=== PATIENT | male | born 1990 | race Caucasian/White ===

== ENCOUNTER 2019-09-06 19:57 | Emergency (ER) | payer BC ==
[2019-09-06] MEDS ORDERED: NORCO 5/325 MG PO ONE (20:21)
[2019-09-06] MEDS ORDERED: SUBLIMAZE 100 MCG/2 ML INTRANASAL ONE (20:21)
[2019-09-06] MEDS ORDERED: SUBLIMAZE 100 MCG/2 ML ONE (20:23)
[2019-09-06] MEDS ORDERED: NORCO 5/325 MG ONE (20:23)
--- NOTE | 2019-09-06 20:23 | ERPHSYRPT ---
- History of Present Illness Time Seen by Provider: 09/06/19 20:20 Source: patient Physician History: The patient is an ambidextrous 28-year-old male who presents with a chief complaint of left shoulder pain. Onset was an estimated 30 minutes to 1 hour prior to arrival to the emergency department. He reportedly was wrestling with his 's brother when he fell on his left shoulder and heard a "pop" that was immediately followed by pain in shoulder. The pain is described as a sharp pain that is constant and severe and nonradiating. The patient actually pointed to the mid to lateral one third of his clavicle as the point of maximum tenderness and pain. He denies any loss of consciousness and endorsed decreased range of motion in his left arm and left shoulder joint due to the pain. He denies any numbness or tingling or paresthesias in the left arm and left hand. He has not taken anything for pain prior to arrival to the emergency department. He was accompanied by his who drove him to the emergency department. Allergies/Adverse Reactions: No Known Drug Allergies Allergy (Unverified 12/02/14 23:33) Hx Tetanus, Diphtheria Vaccination/Date Given: Yes Hx Influenza Vaccination/Date Given: No Hx Pneumococcal Vaccination/Date Given: No Travel Risk - International Travel Have you traveled outside of the country in past 3 weeks: No (N) Have you or anyone close to you been diagnosed with or: No Do your reside in a community with a known COVID-19 case?: Yes If Yes where:: [place] - Review of Systems Constitutional: No Fever, No Chills Respiratory: No Cough, No Cyanosis Cardiac: No No Symptoms Abdominal/Gastrointestinal: No Abdominal Pain, No Nausea, No Vomiting Genitourinary Symptoms: No No Symptoms Musculoskeletal: Deformity, Fall, Injury, Joint Pain, Other (Left shoulder pain) , No Back Pain, No Neck Pain Neurological: No Symptoms, No Parasthesia All Other Systems: Reviewed and Negative - Past Medical History Pertinent Past Medical History: Yes Neurological History: No Pertinent History ENT History: No Pertinent History Cardiac History: No Pertinent History Respiratory History: Asthma, Bronchitis Endocrine Medical History: No Pertinent History Musculoskeletal History: No Pertinent History GI Medical History: No Pertinent History History: No Pertinent History Psycho-Social History: No Pertinent History Male Reproductive Disorders: No Pertinent History - Past Surgical History Past Surgical History: No Neuro Surgical History: No Pertinent History Cardiac: No Pertinent History Respiratory: No Pertinent History Gastrointestinal: No Pertinent History Genitourinary: No Pertinent History Musculoskeletal: No Pertinent History Male Surgical History: No Pertinent History - Social History Smoking Status: Never smoker Exposure to second hand smoke: No Drug Use: none Patient Lives Alone: No - Nursing Vital Signs Nursing Vital Signs: Initial Vital Signs Temperature 98.0 F 09/06/19 20:05 Pulse Rate 100 H 09/06/19 20:05 Respiratory Rate 18 09/06/19 20:05 Blood Pressure 144/96 09/06/19 20:05 O2 Sat by Pulse Oximetry 97 09/06/19 20:05 Pain Scale Pain Intensity 2 - Physical Exam General Appearance: mild distress Eye Exam: PERRL/EOMI, eyes nml inspection Ears, Nose, Throat Exam: normal ENT inspection, TMs normal, pharynx normal, moist mucous membranes, No pharyngeal erythema, No tonsillar exudate Neck Exam: normal inspection, non-tender, supple, other (No midline posterior cervical spine tenderness) Respiratory Exam: normal breath sounds, lungs clear, No respiratory distress Cardiovascular Exam: regular rate/rhythm, normal heart sounds, normal peripheral pulses, capillary refill <2 sec, capillary refill 2-3 sec, other ( Radial pulse 2+ bilaterally), No pulse deficit Gastrointestinal/Abdomen Exam: soft, No tenderness, No distention, No mass Back Exam: normal inspection Extremity Exam: tenderness (Tenderness and palpable deformity noted to the left clavicle. No significant left shoulder tenderness, left upper arm tenderness, left elbow tenderness, left forearm tenderness, and left hand tenderness. ), other Neurologic Exam: alert, oriented x 3, cooperative, other (Sensation to gross touch equal and intact in the radial, ulnar, and median nerve distribution of the left and right hand. Sensation to gross touch intact and equal to the C5 region of shoulder.) Skin Exam: normal color, warm, dry, No rash, No petechiae SpO2: 97 O2 Delivery: Room Air Procedures - Splinting Location of Splint: Left, Upper Arm Type of Splint: Other (Sling) Splint Applied By: ED Nurse Pre-Proc Neuro Vasc Exam: normal Post-Proc Neuro Vasc Exam: neurovascular intact, unchanged from pre-exam - Course Nursing assessment & vital signs reviewed: Yes - Radiology Exams Clavicle X-ray Interpretation: Interpreted by me, Reviewed by me, Displaced Fracture, Other Shoulder X-ray Interpretation: Interpreted by me, Reviewed by me, Negative, Other (No fracture to shoulder or joint or dislocation. Clavicle fracture seen again.) Ordered Tests: Active Orders 24 hr Category Date Time Status Isolation, Initiate & Maintain Q4H Care 09/06/19 20:22 Active Pulse Oximetry (ED) STAT Care 09/06/19 20:45 Active Sling Application STAT Care 09/06/19 21:06 Active CLAVICLE Stat Exams 09/06/19 20:22 Taken SHOULDER Stat Exams 09/06/19 20:22 Taken Medication Summary Discontinued Medications Generic Name Dose Route Start Last Admin Trade Name Freq PRN Reason Stop Dose Admin Hydrocodone Bitart/Acetaminophen 2 tab 09/06/19 20:21 09/06/19 20:25 [place] 5/325 Mg PO 09/06/19 20:22 2 tab STAT ONE Administration Hydrocodone Bitart/Acetaminophen Confirm 09/06/19 20:23 [place] 5/325 Mg Administered 09/06/19 20:24 Dose 2 tab .ROUTE .STK-MED ONE Fentanyl Citrate 100 mcg 09/06/19 20:21 09/06/19 20:25 Sublimaze 100 Mcg/2 Ml INTRANASAL 09/06/19 20:22 100 mcg STAT ONE Administration Fentanyl Citrate Confirm 09/06/19 20:23 Sublimaze 100 Mcg/2 Ml Administered 09/06/19 20:24 Dose 100 mcg .ROUTE .STK-MED ONE Hydromorphone HCl 0.5 mg 09/06/19 21:16 09/06/19 21:26 Hydromorphone 1 Mg/Ml Ampule SQ 09/06/19 21:17 0.5 mg STAT ONE Administration Hydromorphone HCl Confirm 09/06/19 21:22 Hydromorphone 1 Mg/Ml Ampule Administered 09/06/19 21:23 Dose 1 mg .ROUTE .STK-MED ONE Ondansetron HCl 4 mg 09/06/19 21:17 09/06/19 21:24 Zofran Odt 4 Mg PO 09/06/19 21:18 4 mg STAT ONE Administration Ondansetron HCl Confirm 09/06/19 21:22 Zofran Odt 4 Mg Administered 09/06/19 21:23 Dose 4 mg .ROUTE .STK-MED ONE - Progress Progress: improved Progress Note: 09/06/19 22:[address] Long, orthopedics, and discussed mellissa case with him. He agreed with management and recommended having the patient follow-up in his fracture clinic located in [place] on [address] [place] [address] this coming 09/08/19. Discussed with Dr.: Other (Dr. Long, orthopedics) Counseled pt/family regarding: diagnosis, need for follow-up, rad results - Departure Departure Disposition: Home Clinical Impression: Closed displaced fracture of left clavicle, Fall Condition: Stable Critical Care Time: No Referrals: MARY JANE HONG NP [Primary Care Provider] - Instructions: Clavicle Fracture, How to Use a Shoulder Sling Additional Instructions: Please follow-up with the [facility] this coming Sunday, . The clinic opens at 0800. Location of the clinic: [address] [place], [place] [id number] The number to the clinic is Prescriptions: Ondansetron ODT 4 MG [Zofran Odt 4 mg] 4 mg PO Q6H PRN PRN #10 tab.rapdis PRN Reason: Nausea/Vomiting Docusate Sodium 100 mg [Colace 100 MG] 100 mg PO BID #60 cap Oxycodone/APAP 5 mg/325 mg [Percocet Tablet 5/325Mg] 1 - 2 tab PO Q4-6HPRN PRN #20 tablet MDD 6-8 PRN Reason: Pain
[2019-09-06] MEDS ORDERED: Hydromorphone 1 mg/ml Ampule SQ ONE (21:16)
[2019-09-06] MEDS ORDERED: ZOFRAN ODT 4 MG PO ONE (21:17)
[2019-09-06] MEDS ORDERED: ZOFRAN ODT 4 MG ONE (21:22)
[2019-09-06] MEDS ORDERED: Hydromorphone 1 mg/ml Ampule ONE (21:22)
[2019-09-06 22:09] VITALS: BP 129/81; PULSE 90
[2019-09-06 22:10] VITALS: O2SAT 97
--- NOTE | 2019-09-07 08:13 | XRAY ---
Indication: Pain following injury. Comparison: None 2 view left clavicle demonstrates comminuted mid shaft fracture with bayonet apposition/alignment. No other bony, articular, or soft tissue abnormalities.
--- NOTE | 2019-09-07 08:15 | XRAY ---
Indication: Pain following injury. Comparison: None 3 view left shoulder demonstrates comminuted mid shaft fracture with bayonet apposition/alignment. No other bony, articular, or soft tissue abnormalities.
== END 2019-09-06 22:26 | disposition home or self-care (01) ==
LOC: ED 19:57
DX: S42.002A Fracture of unspecified part of left clavicle, initial encounter for closed fracture (principal); M25.512 Pain in left shoulder; W18.39XA Other fall on same level, initial encounter; Y93.72 Activity, wrestling; Y92.9 Unspecified place or not applicable
CPT/HCPCS: 73000; 73030; 94760; 96372; 99284; J1170; J3010; Q0162; A9270-GY

== ENCOUNTER 2021-05-05 13:42 | Emergency (ER) | payer BC ==
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
[2021-05-05] MEDS ORDERED: Sodium Chloride 0.9% 1000 ML 1,000 ML IV STA (14:01)
[2021-05-05] MEDS ORDERED: TORAdol 30 mg Injection IV ONE (14:01)
[2021-05-05] MEDS ORDERED: Zofran 4 MG/2 ML VIAL IV ONE (14:01)
[2021-05-05] MEDS ORDERED: Hydromorphone 1 mg/ml Injection IV ONE (14:01)
[2021-05-05] MEDS ORDERED: TORAdol 30 mg Injection ONE (14:11)
[2021-05-05] MEDS ORDERED: Sodium Chloride 0.9% 1000 ML 1,000 ML ONE (14:11)
[2021-05-05] MEDS ORDERED: Hydromorphone 1 mg/ml Injection ONE (14:11)
[2021-05-05] MEDS ORDERED: Zofran 4 MG/2 ML VIAL ONE (14:11)
[2021-05-05 14:31] LABS: Absolute Neutrophil Ct (ANC) 7.28 (1.4-6.9); BASOPHIL % 0.3 % (0.0-0.4); Basophil (Absolute #) 0.03 (0-0.4); Eosinophil % 1.3 % (0.00-5.0); Eosinophil (Absolute #) 0.14 (0-0.5); Hematocrit 48.1 % (42-50); Hemoglobin 15.6 gm/dl (12.5-18.0); Lymphocyte (Absolute #) 2.37 (1.0-4.6); Lymphocytes % 22.5 % (24.0-44.0); Mean Cell Volume 85.7 fl (78-100); Mean Corpuscular Hemoglobin 27.8 pg (26-32); Mean Corpuscular Hgb Concent. 32.4 g/dl (32-36); Mean Platelet Volume 9.3 fl (7.5-11.0); Monocyte (Absolute #) 0.72 (0.0-1.3); Monocytes % 6.8 % (0.0-12.0); Neutrophil % 69.1 % (36.0-66.0); Platelet Count 255 K/mm3 (150-450); Red Blood Count 5.61 M/mm3 (4.1-5.6); Red Cell Distribution Width 13.3 % (11.5-14.0); White Blood Count 10.5 K/mm3 (4.0-10.5)
--- NOTE | 2021-05-05 14:54 | XRAY ---
Indication: Low back pain. Multiple contiguous axial images obtained through the abdomen and pelvis without contrast. Comparison: December 03, 2014. Lung bases remain clear. Heart not enlarged. Continued negative for renal calculus or evidence for obstructive uropathy. Noncontrasted stomach and bowel loops are nonobstructed again with normal appendix. Minimal sigmoid diverticulosis. No free fluid/air. Mild diffuse fatty liver. Remaining liver, gallbladder, pancreas, spleen, adrenal glands, kidneys, ureters, bladder, and aorta are unremarkable for noncontrast exam. Osseous structures intact again with small multilevel thoracolumbar Schmorl nodes. No ventral/inguinal hernias. Impression: 1. Continued negative for renal calculus or evidence for obstructive uropathy. 2. Fatty liver and sigmoid diverticulosis. 3. Remaining CT abdomen/pelvis without contrast exam is negative.
--- NOTE | 2021-05-05 14:56 | XRAY ---
Indication: Low back pain. Axial, coronal, and sagittal reformatted images of the lumbar spine obtained using raw data from same day CT abdomen/pelvis. Axial images demonstrates mild broad-based disc bulge at L4-S1 levels. No large disc herniation or spinal canal stenosis. Facets are symmetric. Sagittal and coronal reformatted images demonstrates normal alignment with vertebral body height/disc spaces maintained. Tiny multilevel thoracolumbar Schmorl nodes. No acute compression fracture or subluxation. CT abdomen/pelvis reported separately. Impression: 1. L4-S1 broad-based disc bulge better evaluated with outpatient MRI. 2. Incidental multilevel Schmorl nodes. 3. Remaining CT lumbar spine is negative.
[2021-05-05 15:29] LABS: ALBUMIN 4.3 g/dL (3.5-5.0); ALKALINE PHOSPHATASE 72 U/L (38-126); AMYLASE 66 U/L (30-110); ANION GAP 12.4 MEQ/L (5-15); BLOOD UREA NITROGEN 16 mg/dL (9-20); CHLORIDE 105 mmol/L (98-107); Calcium 9.5 mg/dL (8.4-10.2); Carbon Dioxide 26 mmol/L (22-30); Creatinine 1 1.11 mg/dL (0.66-1.25); EST GLOMERULAR FILTRATION RATE > 60.0 ML/MIN; Glucose 89 mg/dL (74-106); LIPASE 60 U/L (23-300); Potassium 4.6 mmol/L (3.5-5.1); SGOT/AST 28 U/L (17-59); SGPT/ALT 44 U/L (0-50); SODIUM 140 mmol/L (137-145); Total Protein 6.9 g/dL (6.3-8.2)
[2021-05-05 15:30] VITALS: O2SAT 95
[2021-05-05 15:46] LABS: Appearance CLEAR (CLEAR); Bilirubin NEGATIVE (NEGATIVE); Blood NEGATIVE Ery/ul (0-5); Glucose NEGATIVE (NEGATIVE); Ketones NEGATIVE (NEGATIVE); Leukocyte Esterase NEGATIVE (NEGATIVE); Mucus SLIGHT /HPF (NEGATIVE); Nitrite NEGATIVE (NEGATIVE); Protein,Urine Dip NEGATIVE (Negative); Specific Gravity 1.026 (1.005-1.025); Urobilinogen NEGATIVE mg/dL (0-1)
[2021-05-05 16:38] VITALS: BP 120/79; PULSE 82
== END 2021-05-05 16:49 | disposition home or self-care (01) ==
LOC: ED 13:42
DX: M51.16 Intervertebral disc disorders with radiculopathy, lumbar region (principal); Z79.891 Long term (current) use of opiate analgesic; Z79.52 Long term (current) use of systemic steroids
CPT/HCPCS: 36000; 36415; 74176; 76376; 80053; 81001; 82150; 83605; 83690; 85025; 96374; 96375; 99284; J1170; J1885; J2405

== ENCOUNTER 2022-05-05 13:48 | Inpatient (IN) | payer BC ==
[2022-05-05] MEDS ORDERED: Sodium Chloride 0.9% 1000 ML 1,000 ML IV STA (14:21)
--- NOTE | 2022-05-05 14:21 | ERPHSYRPT ---
- History of Present Illness Time Seen by Provider: 05/05/22 14:10 Historian: patient Exam Limitations: no limitations Patient Subjective Stated Complaint: C/O abdominal pain that started on 05/01/22. Pain is a intermittent, sharp, aching to the center of his abdomen. States he has bright red blood in his stool. Nausea started today without vomiting at this time. Triage Nursing Assessment: Patient ambulated back to ED without difficulties. He is alert and oriented. No SOB. Abdomen soft. Skin tone normal. Physician History: There is a 31-year-old white male patient of nurse practitioner Roxana who presents emergency department 4-day history of abdominal pain that is located the midline suprapubic region. It is described as intermittent crampiness and associated with some bright red blood per rectum. He has been intermittently nauseated but has had no vomiting. He denies chest pain and he denies shortness of breath. Patient has a history of hypertension and anxiety/depression. Timing/Duration: day(s) (4), other (Persistent with associated bright red blood per rectum) Quality: cramping Abdominal Pain Onset Location: suprapubic (Midline) Pain Radiation: no radiation Severity of Pain-Max: mild (To moderate) Severity of Pain-Current: mild (He states he does not need anything for pain at this time.) Associated Symptoms: nausea, other (Bright red blood rectally) Previous symptoms: no prior history, no recent treatment Allergies/Adverse Reactions: No Known Drug Allergies Allergy (Verified 05/05/22 13:57) Home Medications: Citalopram Hydrobromide [Celexa] 1 tab PO DAILY 05/05/22 [History] Losartan Potassium [Cozaar] 1 tab PO DAILY 05/05/22 [History] Phentermine HCl 1 tab PO DAILY 05/05/22 [History] Hx Tetanus, Diphtheria Vaccination/Date Given: Yes Hx Influenza Vaccination/Date Given: No Hx Pneumococcal Vaccination/Date Given: No Immunizations Up to Date: Yes Travel Risk - International Travel Have you traveled outside of the country in past 3 weeks: No - Coronavirus Screening Are you exhibiting any of the following symptoms?: No Close contact with a COVID-19 positive Pt in past 14-21 Days: No - Vaccine Status Have you recieved a Covid-19 vaccination: No - Review of Systems Constitutional: No Symptoms Eyes: No Symptoms Ears, Nose, & Throat: No Symptoms Respiratory: No Symptoms Cardiac: No Symptoms Abdominal/Gastrointestinal: Abdominal Pain (Suprapubic midline), Nausea, No Vomiting, No Diarrhea, No Constipation Genitourinary Symptoms: No Symptoms Musculoskeletal: No Symptoms Skin: No Symptoms Neurological: No Symptoms Psychological: No Symptoms Endocrine: No Symptoms Hematologic/Lymphatic: No Symptoms Immunological/Allergic: No Symptoms All Other Systems: Reviewed and Negative - Past Medical History Pertinent Past Medical History: Yes Neurological History: No Pertinent History ENT History: No Pertinent History Cardiac History: Hypertension Respiratory History: Sleep Apnea Endocrine Medical History: No Pertinent History Musculoskeletal History: Degenerative Disk Disease GI Medical History: No Pertinent History History: No Pertinent History Psycho-Social History: Depression Male Reproductive Disorders: No Pertinent History Other Medical History: NOTES PAIN IN THE BACK AT TIMES DUE TO WORK TASKS. - Past Surgical History Past Surgical History: No Neuro Surgical History: No Pertinent History Cardiac: No Pertinent History Respiratory: No Pertinent History Gastrointestinal: No Pertinent History Genitourinary: No Pertinent History Musculoskeletal: No Pertinent History Male Surgical History: No Pertinent History Other Surgical History: Left clavicle repair - Social History Smoking Status: Never smoker Exposure to second hand smoke: No Drug Use: none Patient Lives Alone: No - Nursing Vital Signs Nursing Vital Signs: Initial Vital Signs Temperature 97.8 F 05/05/22 13:59 Pulse Rate 89 05/05/22 13:59 Respiratory Rate 18 05/05/22 13:59 Blood Pressure 130/91 05/05/22 13:59 O2 Sat by Pulse Oximetry 97 05/05/22 13:59 Pain Scale Pain Intensity 7 - Physical Exam General Appearance: no apparent distress, alert, anxiety Eye Exam: PERRL/EOMI, eyes nml inspection Ears, Nose, Throat Exam: normal ENT inspection Neck Exam: normal inspection, non-tender, supple, full range of motion Respiratory Exam: normal breath sounds, lungs clear, airway intact, No chest tenderness, No respiratory distress Cardiovascular Exam: regular rate/rhythm, normal heart sounds, normal peripheral pulses Gastrointestinal/Abdomen Exam: soft, normal bowel sounds, tenderness (Suprapubic midline), guarding (Suprapubic midline to palpation), No rebound Rectal Exam: not done Back Exam: normal inspection, normal range of motion, No CVA tenderness, No vertebral tenderness Extremity Exam: normal inspection, normal range of motion, pelvis stable Neurologic Exam: alert, oriented x 3, cooperative, match marker II-XII nml as tested, normal mood/affect, nml cerebellar function, nml station & gait, sensation nml Skin Exam: normal color, warm, dry Lymphatic Exam: No adenopathy SpO2 Interpretation: normal SpO2: 97 O2 Delivery: Room Air - Course Nursing assessment & vital signs reviewed: Yes Ordered Tests: Active Orders 24 hr Category Date Time Status IV Insertion STAT Care 05/05/22 14:21 Active ABDOMEN AND PELVIS W/0 CONTRAS [CT] Stat Exams 05/05/22 14:40 Completed AMYLASE Stat Lab 05/05/22 14:21 Completed CBC W DIFF Stat Lab 05/05/22 14:21 Completed CMP Stat Lab 05/05/22 14:21 Completed LIPASE Stat Lab 05/05/22 14:21 Completed UA W/RFX CULTURE Stat Lab 05/05/22 Ordered Transfer Order Routine Transfer 05/05/22 Ordered Medication Summary Generic Name Dose Route Start Last Admin Trade Name Freq PRN Reason Stop Dose Admin Levofloxacin/Dextrose 500 mg in 100 mls @ 100 mls/hr 05/05/22 15:04 Levofloxacin 500mg/100ml D5w IV 05/05/22 16:03 STAT STA Metronidazole 500 mg in 100 mls @ 200 mls/hr 05/05/22 15:04 Flagyl 500 Mg Ivpb IV 05/05/22 15:33 STAT STA Discontinued Medications Generic Name Dose Route Start Last Admin Trade Name Freq PRN Reason Stop Dose Admin Hydromorphone HCl 1 mg 05/05/22 15:09 Hydromorphone 1 Mg/1ml Inj 1 Mg/Ml Syringe IV 05/05/22 15:10 STAT ONE Sodium Chloride 1,000 mls @ 999 mls/hr 05/05/22 14:21 05/05/22 15:25 Sodium Chloride 0.9% 1000 Ml IV 05/05/22 15:21 Infused .Q1H1M STA Infusion Sodium Chloride Confirm 05/05/22 14:23 Sodium Chloride 0.9% 1000 Ml Administered 05/05/22 14:24 Dose 1,000 mls @ ud .ROUTE .STK-MED ONE Ondansetron HCl 4 mg 05/05/22 15:09 Ondansetron Hcl 4 Mg/2 Ml Vial IV 12/23/22 15:10 STAT ONE Lab/Rad Data: Laboratory Result Diagrams 05/05/22 14:21 05/05/22 14:21 Laboratory Results 05/05/22 05/05/22 Range/Units 14:21 14:21 WBC 14.1 H (4.0-10.5) x10^3/uL RBC 5.21 (4.1-5.6) x10^6/uL Hgb 14.6 (12.5-18.0) g/dL Hct 44.6 (42-50) % MCV 85.6 (78-100) fL MCH 28.0 (26-32) pg MCHC 32.7 (32-36) g/dL RDW 12.5 (11.5-14.0) % Plt Count 289 (150-450) x10^3/uL MPV 9.2 (7.5-11.0) fL Gran % 76.3 H (36.0-66.0) % Immature Gran % (Auto) 0.3 (0.00-0.4) % Nucleat RBC Rel Count 0.0 (0.00-0.1) % Eos # (Auto) 0.21 (0-0.5) x10^3/uL Immature Gran # (Auto) 0.04 H (0.00-0.03) x10^3u/L Absolute Lymphs (auto) 2.00 (1.0-4.6) x10^3/uL Absolute Monos (auto) 1.04 (0.0-1.3) x10^3/uL Absolute Nucleated RBC 0.00 (0.00-0.01) x10^3u/L Lymphocytes % 14.2 L (24.0-44.0) % Monocytes % 7.4 (0.0-12.0) % Eosinophils % 1.5 (0.00-5.0) % Basophils % 0.3 (0.0-0.4) % Absolute Granulocytes 10.74 H (1.4-6.9) x10^3/uL Basophils # 0.04 (0-0.4) x10^3/uL Sodium 137 (137-145) mmol/L Potassium 3.8 (3.5-5.1) mmol/L Chloride 102 (98-107) mmol/L Carbon Dioxide 29 (22-30) mmol/L Anion Gap 9.2 (5-15) MEQ/L BUN 11 (9-20) mg/dL Creatinine 0.89 (0.66-1.25) mg/dL Estimated GFR > 60.0 ML/MIN Glucose 99 (74-106) mg/dL Calcium 9.3 (8.4-10.2) mg/dL Total Bilirubin 0.80 (0.2-1.3) mg/dL AST 28 (17-59) U/L ALT 24 (0-50) U/L Alkaline Phosphatase 86 (38-126) U/L Serum Total Protein 7.6 (6.3-8.2) g/dL Albumin 4.5 (3.5-5.0) g/dL Amylase 68 (30-110) U/L Lipase 46 (23-300) U/L - Progress Progress: improved, pain not gone completely Progress Note: 05/05/22 15:10 CAT scan of the abdomen pelvis without contrast shows new air distended colon with mild mid descending colitis. There is tiny pelvic reactive free fluid. There is a prominent appendix without fernando-appendiceal stranding Discussed with Dr.: Raymundo - Departure Departure Disposition: Observation Clinical Impression: Colitis, Leukocytosis Condition: Stable Critical Care Time: No Referrals: MARY JANE HONG, ADAM [Primary Care Provider] - Follow up/PCP as directed
[2022-05-05] MEDS ORDERED: Sodium Chloride 0.9% 1000 ML 1,000 ML ONE (14:23)
[2022-05-05 14:30] LABS: Absolute Neutrophil Ct (ANC) 10.74 x10^3/uL (1.4-6.9); Basophil (Absolute #) 0.04 x10^3/uL (0-0.4); Eosinophil % 1.5 % (0.00-5.0); Eosinophil (Absolute #) 0.21 x10^3/uL (0-0.5); Hematocrit 44.6 % (42-50); Hemoglobin 14.6 g/dL (12.5-18.0); Lymphocytes % 14.2 % (24.0-44.0); Mean Cell Volume 85.6 fL (78-100); Mean Corpuscular Hgb Concent. 32.7 g/dL (32-36); Mean Platelet Volume 9.2 fL (7.5-11.0); Monocyte (Absolute #) 1.04 x10^3/uL (0.0-1.3); Monocytes % 7.4 % (0.0-12.0); Neutrophil % 76.3 % (36.0-66.0); Platelet Count 289 x10^3/uL (150-450); Red Blood Count 5.21 x10^6/uL (4.1-5.6); Red Cell Distribution Width 12.5 % (11.5-14.0); White Blood Count 14.1 x10^3/uL (4.0-10.5)
[2022-05-05 14:47] LABS: ALBUMIN 4.5 g/dL (3.5-5.0); ALKALINE PHOSPHATASE 86 U/L (38-126); AMYLASE 68 U/L (30-110); ANION GAP 9.2 MEQ/L (5-15); BLOOD UREA NITROGEN 11 mg/dL (9-20); CHLORIDE 102 mmol/L (98-107); Calcium 9.3 mg/dL (8.4-10.2); Carbon Dioxide 29 mmol/L (22-30); Creatinine 1 0.89 mg/dL (0.66-1.25); EST GLOMERULAR FILTRATION RATE > 60.0 ML/MIN; Glucose 99 mg/dL (74-106); LIPASE 46 U/L (23-300); Potassium 3.8 mmol/L (3.5-5.1); SGOT/AST 28 U/L (17-59); SGPT/ALT 24 U/L (0-50); SODIUM 137 mmol/L (137-145); Total Protein 7.6 g/dL (6.3-8.2)
--- NOTE | 2022-05-05 14:54 | XRAY ---
Indication: Abdomen pain and blood in stool. Multiple contiguous axial images obtained through the abdomen and pelvis without contrast. Comparison: May 05, 2021 Lung bases demonstrate minimal dependent atelectasis. No infiltrate or effusion. Heart not enlarged. Again incidental tiny paraesophageal calcified nodes. Noncontrasted stomach and bowel loops appear nonobstructed. Appendix is now prominent up to 9 mm diameter without periappendiceal stranding. Mild/early appendicitis not completely excluded in the right clinical setting. Colon is mildly air distended throughout with mild fecal debris in the ascending colon. Mid descending aorta demonstrates minimal wall thickening with mild pericolonic stranding favoring colitis. Tiny pelvic free fluid presumed reactive. No walled off fluid or free air. Liver again demonstrates mild diffuse fatty attenuation. Gallbladder partially contracted without gallstones. Remaining liver, gallbladder, pancreas, spleen, adrenal glands, kidneys, ureters, bladder, and aorta are unremarkable for noncontrast exam. Osseous structures intact again with tiny multilevel Schmorl nodes. Impression: 1. New air distended colon with mild mid descending colitis. Tiny pelvic reactive free fluid. 2. Prominent appendix. Rule out mild/early appendicitis. 3. Again incidental fatty liver and old granulomatous disease.
[2022-05-05] MEDS ORDERED: Levofloxacin 500MG/100ML D5W 500 MG/100 ML BAG IV STA (15:04)
[2022-05-05] MEDS ORDERED: FLAGYL 500 MG IVPB 500 MG/100 ML BAG IV STA (15:04)
[2022-05-05] MEDS ORDERED: Zofran 4 MG/2 ML VIAL IV ONE (15:09)
[2022-05-05] MEDS ORDERED: Hydromorphone 1 mg/ml Injection IV ONE (15:09)
[2022-05-05] MEDS ORDERED: Zofran 4 MG/2 ML VIAL ONE (15:28)
[2022-05-05] MEDS ORDERED: Hydromorphone 1 mg/ml Injection ONE (15:28)
[2022-05-05] MEDS ORDERED: Levofloxacin 500MG/100ML D5W 500 MG/100 ML BAG IV ONE (15:29)
[2022-05-05] MEDS ORDERED: FLAGYL 500 MG IVPB 500 MG/100 ML BAG IV ONE (15:29)
[2022-05-05 16:07] LABS: INFLUENZA A NEGATIVE (NEGATIVE); INFLUENZA B NEGATIVE (NEGATIVE); RESPIRATORY SYNCTIAL VIRUS NEGATIVE (Negative); SARS-CoV-2 Xpert Express NEGATIVE (NEGATIVE)
[2022-05-05] MEDS ORDERED: Hydromorphone 1 mg/ml Injection IV PRN (16:48)
[2022-05-05] MEDS ORDERED: FEVERALL 650 MG PR PRN (16:48)
[2022-05-05] MEDS: Sodium Chloride 0.9% 1000 ML 1,000 ML IV SCH (17:05)
[2022-05-05] MEDS ORDERED: PHARMACY DOSING REQUIRED: DILAUDID PCA IV STA (17:15)
[2022-05-05] MEDS ORDERED: FLAGYL 500 MG IVPB 500 MG/100 ML BAG IV SCH (18:00)
[2022-05-05] MEDS: DILAUDID 1 MG/1ML PCA SYRINGE IV PRN (18:01)
[2022-05-05] MEDS: FLAGYL 500 MG IVPB 500 MG/100 ML BAG IV SCH (20:35)
[2022-05-05] MEDS: ceLEXa 20 MG PO SCH (20:35)
[2022-05-05] MEDS ORDERED: NON-FORMULARY ITEM (Citalopram Hydrobromide [Celexa] 10 MG Tablet) PO SCH (22:00)
[2022-05-06] MEDS: Sodium Chloride 0.9% 1000 ML 1,000 ML IV SCH ×3 (00:54→17:51)
[2022-05-06] MEDS: FLAGYL 500 MG IVPB 500 MG/100 ML BAG IV SCH ×5 (00:55→23:38)
[2022-05-06] MEDS: Zofran 4 MG/2 ML VIAL IV PRN ×2 (02:55→12:25)
[2022-05-06 03:27] LABS: Mucus SLIGHT /HPF (NEGATIVE); WBC 0-2 /HPF (0-5)
[2022-05-06 03:28] LABS: Appearance CLEAR (CLEAR); Bilirubin NEGATIVE (NEGATIVE); Dipstick done @ ? MAIN LAB; Glucose NEGATIVE (NEGATIVE); Ketones SMALL-15 (NEGATIVE); Nitrite NEGATIVE (NEGATIVE); Protein,Urine Dip NEGATIVE (Negative); RBC SMALL Ery/ul (0-5); Specific Gravity 1.025 (1.005-1.025); Urobilinogen 0.2 mg/dL (0-1)
[2022-05-06 03:29] LABS: Urine Cultured Indicated? NO
[2022-05-06 05:52] LABS: Absolute Neutrophil Ct (ANC) 9.34 x10^3/uL (1.4-6.9); Basophil (Absolute #) 0.03 x10^3/uL (0-0.4); Eosinophil % 0.7 % (0.00-5.0); Eosinophil (Absolute #) 0.08 x10^3/uL (0-0.5); Hemoglobin 13.2 g/dL (12.5-18.0); Mean Cell Volume 86.5 fL (78-100); Mean Corpuscular Hemoglobin 27.8 pg (26-32); Mean Corpuscular Hgb Concent. 32.2 g/dL (32-36); Mean Platelet Volume 8.9 fL (7.5-11.0); Monocyte (Absolute #) 0.96 x10^3/uL (0.0-1.3); Monocytes % 8.2 % (0.0-12.0); Neutrophil % 79.3 % (36.0-66.0); Platelet Count 251 x10^3/uL (150-450); Red Blood Count 4.74 x10^6/uL (4.1-5.6); Red Cell Distribution Width 12.7 % (11.5-14.0); White Blood Count 11.8 x10^3/uL (4.0-10.5)
[2022-05-06 06:08] LABS: ALBUMIN 3.6 g/dL (3.5-5.0); ALKALINE PHOSPHATASE 72 U/L (38-126); ANION GAP 7.3 MEQ/L (5-15); BLOOD UREA NITROGEN 9 mg/dL (9-20); CHLORIDE 104 mmol/L (98-107); Calcium 8.4 mg/dL (8.4-10.2); Carbon Dioxide 28 mmol/L (22-30); EST GLOMERULAR FILTRATION RATE > 60.0 ML/MIN; Glucose 101 mg/dL (74-106); Potassium 3.9 mmol/L (3.5-5.1); SGOT/AST 20 U/L (17-59); SGPT/ALT 20 U/L (0-50); SODIUM 135 mmol/L (137-145); Total Protein 6.4 g/dL (6.3-8.2)
--- NOTE | 2022-05-06 09:41 | PCM.HP ---
History of Present Illness - Chief Complaint Chief Complaint: colitis; prominent appendix History of Present Illness: Mr.ANDERSON NEVES is a 31 year old male who presented to the ER with abdominal pain, he reported blood in his stool 3 days earlier, no diarrhea now. pain in low abdomen and feeling poorly, progressively worsening. - Review of Systems Constitutional: No Fever, No Chills Abdominal/Gastrointestinal: Abdominal Pain, Hematochezia Genitourinary Symptoms: Urinary Retention Skin: No Rash Medications & Allergies Home Medications: Home Medication List Citalopram Hydrobromide [Celexa] 10 mg PO HS 05/05/22 [History Confirmed 05/05/22] Losartan Potassium [Cozaar] 100 mg PO DAILY 05/05/22 [History Confirmed 05/05/22] Phentermine HCl 37.5 mg PO DAILY 05/05/22 [History Confirmed 05/05/22] Allergies/Adverse Reactions: Allergies Allergy/AdvReac Type Severity Reaction Status Date / Time No Known Drug Allergies Allergy Verified 05/05/22 13:57 - Past Medical History Past Medical History: Yes Neurological History: No Pertinent History ENT History: No Pertinent History Cardiac History: Hypertension Respiratory History: Sleep Apnea Endocrine Medical History: No Pertinent History Musculoskelatal History: Degenerative Disk Disease GI Medical History: Colitis History: No Pertinent History Pyscho-Social History: Depression Male Reproductive Disorders: No Pertinent History Comment: NOTES PAIN IN THE BACK AT TIMES DUE TO WORK TASKS. - Past Surgical History Past Surgical History: Yes Neuro Surgical History: No Pertinent History Cardiac History: No Pertinent History Respiratory Surgery: No Pertinent History GI Surgical History: No Pertinent History Genitourinary Surgical Hx: No Pertinent History Musculskeletal Surgical Hx: No Pertinent History Male Surgical History: No Pertinent History Other Surgical History: Left clavicle repair - Social History Smoking Status: Never smoker Exposure to second hand smoke: Yes (vape) Alcohol: Rarely Drug Use: none - Physical Exam Vital Signs: Vital Signs - 24 hr Temp Pulse Resp BP Pulse Ox 05/06/22 08:00 97.5 F 78 18 118/63 96 05/06/22 07:29 95 05/06/22 07:00 16 96 05/06/22 04:00 97.5 F 91 H 20 133/91 99 05/06/22 03:00 20 94 L 05/05/22 23:50 97.5 F 88 19 123/64 98 05/05/22 23:00 18 93 L 05/05/22 19:40 98.9 F 83 20 144/76 95 05/05/22 19:00 17 98 05/05/22 18:01 17 98 05/05/22 17:25 97.7 F 85 17 155/82 98 05/05/22 16:49 97.7 F 85 17 155/82 98 05/05/22 16:39 91 H 18 118/82 98 05/05/22 15:55 83 110/62 93 L 05/05/22 15:29 97 05/05/22 14:55 91 H 118/82 97 05/05/22 13:59 97.8 F 89 18 130/91 97 General Appearance: no apparent distress, obese Neurologic Exam: alert, oriented x 3, cooperative Respiratory Exam: normal breath sounds, lungs clear, No respiratory distress Cardiovascular Exam: regular rate/rhythm, normal heart sounds, normal peripheral pulses Gastrointestinal/Abdomen Exam: soft, No tenderness, No distention, No guarding, No rebound Extremity Exam: normal inspection, normal range of motion, pelvis stable Skin Exam: normal color, warm, dry, No rash Results - Labs Lab/Micro Results: Lab Results-Last 24 Hours 05/05/22 05/05/22 05/05/22 Range/Units 03:18 14:21 14:21 WBC 14.1 H (4.0-10.5) x10^3/uL RBC 5.21 (4.1-5.6) x10^6/uL Hgb 14.6 (12.5-18.0) g/dL Hct 44.6 (42-50) % MCV 85.6 (78-100) fL MCH 28.0 (26-32) pg MCHC 32.7 (32-36) g/dL RDW 12.5 (11.5-14.0) % Plt Count 289 (150-450) x10^3/uL MPV 9.2 (7.5-11.0) fL Gran % 76.3 H (36.0-66.0) % Immature Gran % (Auto) 0.3 (0.00-0.4) % Nucleat RBC Rel Count 0.0 (0.00-0.1) % Eos # (Auto) 0.21 (0-0.5) x10^3/uL Immature Gran # (Auto) 0.04 H (0.00-0.03) x10^3u/L Absolute Lymphs (auto) 2.00 (1.0-4.6) x10^3/uL Absolute Monos (auto) 1.04 (0.0-1.3) x10^3/uL Absolute Nucleated RBC 0.00 (0.00-0.01) x10^3u/L Lymphocytes % 14.2 L (24.0-44.0) % Monocytes % 7.4 (0.0-12.0) % Eosinophils % 1.5 (0.00-5.0) % Basophils % 0.3 (0.0-0.4) % Absolute Granulocytes 10.74 H (1.4-6.9) x10^3/uL Basophils # 0.04 (0-0.4) x10^3/uL Sodium 137 (137-145) mmol/L Potassium 3.8 (3.5-5.1) mmol/L Chloride 102 (98-107) mmol/L Carbon Dioxide 29 (22-30) mmol/L Anion Gap 9.2 (5-15) MEQ/L BUN 11 (9-20) mg/dL Creatinine 0.89 (0.66-1.25) mg/dL Estimated GFR > 60.0 ML/MIN Glucose 99 (74-106) mg/dL POC Glucometer (74 to 106) mg/dL Calcium 9.3 (8.4-10.2) mg/dL Total Bilirubin 0.80 (0.2-1.3) mg/dL AST 28 (17-59) U/L ALT 24 (0-50) U/L Alkaline Phosphatase 86 (38-126) U/L Serum Total Protein 7.6 (6.3-8.2) g/dL Albumin 4.5 (3.5-5.0) g/dL Amylase 68 (30-110) U/L Lipase 46 (23-300) U/L Urinalys Dipstick Clnc MAIN LAB Urine Color YELLOW (YELLOW) Urine Appearance CLEAR (CLEAR) Urine pH 6.0 (5-6) Ur Specific [place] 1.025 (1.005-1.025) POC Urine Protein Conf NEGATIVE (Negative) Urine Ketones SMALL-15 A (NEGATIVE) Urine Nitrite NEGATIVE (NEGATIVE) Urine Bilirubin NEGATIVE (NEGATIVE) Urine Urobilinogen 0.2 (0-1) mg/dL Urine Leukocytes NEGATIVE (NEGATIVE) Urine WBC (Auto) 0-2 (0-5) /HPF Urine RBC (Auto) 11-15 A (0-2) /HPF U Epithel Cells (Auto) NONE (FEW) /HPF Urine Bacteria (Auto) NONE (NEGATIVE) /HPF Urine RBC SMALL A (0-5) Benjamin/ul Urine Mucus (Auto) SLIGHT A (NEGATIVE) /HPF Ur Culture Indicated? NO Urine Glucose NEGATIVE (NEGATIVE) mg/dL Influenza Type A Ag (NEGATIVE) Influenza Type B Ag (NEGATIVE) RSV (PCR) (Negative) SARS-CoV-2 (PCR) (NEGATIVE) 05/05/22 05/06/22 05/06/22 Range/Units 15:20 03:30 05:41 WBC 11.8 H (4.0-10.5) x10^3/uL RBC 4.74 (4.1-5.6) x10^6/uL Hgb 13.2 (12.5-18.0) g/dL Hct 41.0 L (42-50) % MCV 86.5 (78-100) fL MCH 27.8 (26-32) pg MCHC 32.2 (32-36) g/dL RDW 12.7 (11.5-14.0) % Plt Count 251 (150-450) x10^3/uL MPV 8.9 (7.5-11.0) fL Gran % 79.3 H (36.0-66.0) % Immature Gran % (Auto) 0.5 H (0.00-0.4) % Nucleat RBC Rel Count 0.0 (0.00-0.1) % Eos # (Auto) 0.08 (0-0.5) x10^3/uL Immature Gran # (Auto) 0.06 H (0.00-0.03) x10^3u/L Absolute Lymphs (auto) 1.30 (1.0-4.6) x10^3/uL Absolute Monos (auto) 0.96 (0.0-1.3) x10^3/uL Absolute Nucleated RBC 0.00 (0.00-0.01) x10^3u/L Lymphocytes % 11.0 L (24.0-44.0) % Monocytes % 8.2 (0.0-12.0) % Eosinophils % 0.7 (0.00-5.0) % Basophils % 0.3 (0.0-0.4) % Absolute Granulocytes 9.34 H (1.4-6.9) x10^3/uL Basophils # 0.03 (0-0.4) x10^3/uL Sodium (137-145) mmol/L Potassium (3.5-5.1) mmol/L Chloride (98-107) mmol/L Carbon Dioxide (22-30) mmol/L Anion Gap (5-15) MEQ/L BUN (9-20) mg/dL Creatinine (0.66-1.25) mg/dL Estimated GFR ML/MIN Glucose (74-106) mg/dL POC Glucometer 101 (74 to 106) mg/dL Calcium (8.4-10.2) mg/dL Total Bilirubin (0.2-1.3) mg/dL AST (17-59) U/L ALT (0-50) U/L Alkaline Phosphatase (38-126) U/L Serum Total Protein (6.3-8.2) g/dL Albumin (3.5-5.0) g/dL Amylase (30-110) U/L Lipase (23-300) U/L Urinalys Dipstick Clnc Urine Color (YELLOW) Urine Appearance (CLEAR) Urine pH (5-6) Ur Specific [place] (1.005-1.025) POC Urine Protein Conf (Negative) Urine Ketones (NEGATIVE) Urine Nitrite (NEGATIVE) Urine Bilirubin (NEGATIVE) Urine Urobilinogen (0-1) mg/dL Urine Leukocytes (NEGATIVE) Urine WBC (Auto) (0-5) /HPF Urine RBC (Auto) (0-2) /HPF U Epithel Cells (Auto) (FEW) /HPF Urine Bacteria (Auto) (NEGATIVE) /HPF Urine RBC (0-5) Benjamin/ul Urine Mucus (Auto) (NEGATIVE) /HPF Ur Culture Indicated? Urine Glucose (NEGATIVE) mg/dL Influenza Type A Ag NEGATIVE (NEGATIVE) Influenza Type B Ag NEGATIVE (NEGATIVE) RSV (PCR) NEGATIVE (Negative) SARS-CoV-2 (PCR) NEGATIVE (NEGATIVE) 12/24/22 Range/Units 05:41 WBC (4.0-10.5) x10^3/uL RBC (4.1-5.6) x10^6/uL Hgb (12.5-18.0) g/dL Hct (42-50) % MCV (78-100) fL MCH (26-32) pg MCHC (32-36) g/dL RDW (11.5-14.0) % Plt Count (150-450) x10^3/uL MPV (7.5-11.0) fL Gran % (36.0-66.0) % Immature Gran % (Auto) (0.00-0.4) % Nucleat RBC Rel Count (0.00-0.1) % Eos # (Auto) (0-0.5) x10^3/uL Immature Gran # (Auto) (0.00-0.03) x10^3u/L Absolute Lymphs (auto) (1.0-4.6) x10^3/uL Absolute Monos (auto) (0.0-1.3) x10^3/uL Absolute Nucleated RBC (0.00-0.01) x10^3u/L Lymphocytes % (24.0-44.0) % Monocytes % (0.0-12.0) % Eosinophils % (0.00-5.0) % Basophils % (0.0-0.4) % Absolute Granulocytes (1.4-6.9) x10^3/uL Basophils # (0-0.4) x10^3/uL Sodium 135 L (137-145) mmol/L Potassium 3.9 (3.5-5.1) mmol/L Chloride 104 (98-107) mmol/L Carbon Dioxide 28 (22-30) mmol/L Anion Gap 7.3 (5-15) MEQ/L BUN 9 (9-20) mg/dL Creatinine 0.90 (0.66-1.25) mg/dL Estimated GFR > 60.0 ML/MIN Glucose 101 (74-106) mg/dL POC Glucometer (74 to 106) mg/dL Calcium 8.4 (8.4-10.2) mg/dL Total Bilirubin 0.70 (0.2-1.3) mg/dL AST 20 (17-59) U/L ALT 20 (0-50) U/L Alkaline Phosphatase 72 (38-126) U/L Serum Total Protein 6.4 (6.3-8.2) g/dL Albumin 3.6 (3.5-5.0) g/dL Amylase (30-110) U/L Lipase (23-300) U/L Urinalys Dipstick Clnc Urine Color (YELLOW) Urine Appearance (CLEAR) Urine pH (5-6) Ur Specific [place] (1.005-1.025) POC Urine Protein Conf (Negative) Urine Ketones (NEGATIVE) Urine Nitrite (NEGATIVE) Urine Bilirubin (NEGATIVE) Urine Urobilinogen (0-1) mg/dL Urine Leukocytes (NEGATIVE) Urine WBC (Auto) (0-5) /HPF Urine RBC (Auto) (0-2) /HPF U Epithel Cells (Auto) (FEW) /HPF Urine Bacteria (Auto) (NEGATIVE) /HPF Urine RBC (0-5) Benjamin/ul Urine Mucus (Auto) (NEGATIVE) /HPF Ur Culture Indicated? Urine Glucose (NEGATIVE) mg/dL Influenza Type A Ag (NEGATIVE) Influenza Type B Ag (NEGATIVE) RSV (PCR) (Negative) SARS-CoV-2 (PCR) (NEGATIVE) - Radiology Impressions Radiology Exams & Impressions: Radiology Procedures Category Date Time Status ABDOMEN AND PELVIS W/0 CONTRAS [CT] Stat Exams 05/05/22 14:40 Completed - Other Procedures and Tests Respiratory Therapy 05/06/22 05:03 Oxygen Nasal Cannula 2 lpm Assessment/Plan (1) Colitis Current Visit: Yes Status: Acute Assessment & Plan: clinical picture and presentation consistent with colitis, mild enlargement of appendix on ct but currently nontender in RLQ. 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 Code(s): K52.9 - NONINFECTIVE GASTROENTERITIS AND COLITIS, UNSPECIFIED (2) Leukocytosis Current Visit: Yes Status: Acute Code(s): D72.829 - ELEVATED WHITE BLOOD CELL COUNT, UNSPECIFIED (3) Urinary retention Current Visit: Yes Status: Acute Assessment & Plan: anchor truong Code(s): R33.9 - RETENTION OF URINE, UNSPECIFIED
[2022-05-06] MEDS ORDERED: NON-FORMULARY ITEM (Losartan Potassium [Cozaar] 100 MG Tablet) PO SCH (10:00)
[2022-05-06] MEDS: Levofloxacin 500MG/100ML D5W 500 MG/100 ML BAG IV SCH (11:09)
[2022-05-06] MEDS: Cozaar 50 MG PO SCH (14:45)
--- NOTE | 2022-05-06 16:20 | PCM.CONS ---
History of Present Illness - Reason for Consult Chief Complaint: colitis; prominent appendix Requesting Provider: PERLA SPARKS Consulting Provider: NICA AYALA MD History of Present Illness: Mr.ANDERSON NEVES is a 31 year old male. hx per chart review and d/w pt and at bedside. sunday this week started having intermittent sharp aching periumbilical abdominal pain. had multiple diarrheas sunday and y assocaited with the pain. sunday had some scant blood with blood clot and then scant liquid stool. has had no BM since then. sunday with worsening pain, bloating, unable to move his bowels unable to pass flatus so went to ED. workup with possible appendicitis on ct. repeat ct appendix ok. pain is dramatically better today. had tons of flatus. no bm still. truong placed for retension. No prior c scope no similar episodes before. no contact with gi issues. famhx no IBD PMH: depression, obesity, HTN. Left clavicle surgery before. "- History of Present Illness Time Seen by Provider: 05/05/22 14:10 Historian: patient Exam Limitations: no limitations Patient Subjective Stated Complaint: C/O abdominal pain that started on 05/01/22. Pain is a intermittent, sharp, aching to the center of his abdomen. States he has bright red blood in his stool. Nausea started today without vomiting at this time. Triage Nursing Assessment: Patient ambulated back to ED without difficulties. He is alert and oriented. No SOB. Abdomen soft. Skin tone normal. Physician History: There is a 31-year-old white male patient of nurse practitioner Roxana who presents emergency department 4-day history of abdominal pain that is located the midline suprapubic region. It is described as intermittent crampiness and associated with some bright red blood per rectum. He has been intermittently nauseated but has had no vomiting. He denies chest pain and he denies shortness of breath. Patient has a history of hypertension and anxiety/depression. Timing/Duration: day(s) (4), other (Persistent with associated bright red blood per rectum) Quality: cramping Abdominal Pain Onset Location: suprapubic (Midline) Pain Radiation: no radiation Severity of Pain-Max: mild (To moderate) Severity of Pain-Current: mild (He states he does not need anything for pain at this time.) Associated Symptoms: nausea, other (Bright red blood rectally) Previous symptoms: no prior history, no recent treatment Allergies/Adverse Reactions: No Known Drug Allergies Allergy (Verified 05/05/22 13:57) Home Medications: Citalopram Hydrobromide [Celexa] 1 tab PO DAILY 05/05/22 [History] Losartan Potassium [Cozaar] 1 tab PO DAILY 05/05/22 [History] Phentermine HCl 1 tab PO DAILY 05/05/22 [History] " Medications & Allergies Home Medications: Home Medication List Citalopram Hydrobromide [Celexa] 10 mg PO HS 05/05/22 [History Confirmed 05/05/22] Losartan Potassium [Cozaar] 100 mg PO DAILY 05/05/22 [History Confirmed 05/05/22] Phentermine HCl 37.5 mg PO DAILY 05/05/22 [History Confirmed 05/05/22] Allergies/Adverse Reactions: Allergies Allergy/AdvReac Type Severity Reaction Status Date / Time No Known Drug Allergies Allergy Verified 05/05/22 13:57 - Past Medical History Past Medical History: Yes Neurological History: No Pertinent History ENT History: No Pertinent History Cardiac History: Hypertension Respiratory History: Sleep Apnea Endocrine Medical History: No Pertinent History Musculoskelatal History: Degenerative Disk Disease GI Medical History: Colitis History: No Pertinent History Pyscho-Social History: Depression Male Reproductive Disorders: No Pertinent History Comment: NOTES PAIN IN THE BACK AT TIMES DUE TO WORK TASKS. - Past Surgical History Past Surgical History: Yes Neuro Surgical History: No Pertinent History Cardiac History: No Pertinent History Respiratory Surgery: No Pertinent History GI Surgical History: No Pertinent History Genitourinary Surgical Hx: No Pertinent History Musculskeletal Surgical Hx: No Pertinent History Male Surgical History: No Pertinent History Other Surgical History: Left clavicle repair - Social History Smoking Status: Never smoker Exposure to second hand smoke: Yes (vape) Alcohol: Rarely Drug Use: none - Physical Exam Vital Signs: Vital Signs - 24 hr Temp Pulse Resp BP Pulse Ox 05/06/22 12:00 97.8 F 82 18 146/68 98 05/06/22 08:00 97.5 F 78 18 118/63 96 05/06/22 07:29 95 05/06/22 07:00 16 96 05/06/22 04:00 97.5 F 91 H 20 133/91 99 05/06/22 03:00 20 94 L 05/05/22 23:50 97.5 F 88 19 123/64 98 05/05/22 23:00 18 93 L 05/05/22 19:40 98.9 F 83 20 144/76 95 05/05/22 19:00 17 98 05/05/22 18:01 17 98 05/05/22 17:25 97.7 F 85 17 155/82 98 05/05/22 16:49 97.7 F 85 17 155/82 98 05/05/22 16:39 91 H 18 118/82 98 General Appearance: no apparent distress, obese Neurologic Exam: alert, oriented x 3, cooperative Eye Exam: eyes nml inspection, No scleral icterus Neck Exam: normal inspection Respiratory Exam: No respiratory distress Cardiovascular Exam: regular rate/rhythm, No edema Gastrointestinal/Abdomen Exam: soft, No tenderness, No distention, No guarding Rectal Exam: deferred Extremity Exam: normal inspection Skin Exam: normal color, warm, dry Results - Labs Lab/Micro Results: Lab Results-Last 24 Hours 05/05/22 05/06/22 05/06/22 Range/Units 03:18 03:30 05:41 WBC 11.8 H (4.0-10.5) x10^3/uL RBC 4.74 (4.1-5.6) x10^6/uL Hgb 13.2 (12.5-18.0) g/dL Hct 41.0 L (42-50) % MCV 86.5 (78-100) fL MCH 27.8 (26-32) pg MCHC 32.2 (32-36) g/dL RDW 12.7 (11.5-14.0) % Plt Count 251 (150-450) x10^3/uL MPV 8.9 (7.5-11.0) fL Gran % 79.3 H (36.0-66.0) % Immature Gran % (Auto) 0.5 H (0.00-0.4) % Nucleat RBC Rel Count 0.0 (0.00-0.1) % Eos # (Auto) 0.08 (0-0.5) x10^3/uL Immature Gran # (Auto) 0.06 H (0.00-0.03) x10^3u/L Absolute Lymphs (auto) 1.30 (1.0-4.6) x10^3/uL Absolute Monos (auto) 0.96 (0.0-1.3) x10^3/uL Absolute Nucleated RBC 0.00 (0.00-0.01) x10^3u/L Lymphocytes % 11.0 L (24.0-44.0) % Monocytes % 8.2 (0.0-12.0) % Eosinophils % 0.7 (0.00-5.0) % Basophils % 0.3 (0.0-0.4) % Absolute Granulocytes 9.34 H (1.4-6.9) x10^3/uL Basophils # 0.03 (0-0.4) x10^3/uL Sodium (137-145) mmol/L Potassium (3.5-5.1) mmol/L Chloride (98-107) mmol/L Carbon Dioxide (22-30) mmol/L Anion Gap (5-15) MEQ/L BUN (9-20) mg/dL Creatinine (0.66-1.25) mg/dL Estimated GFR ML/MIN Glucose (74-106) mg/dL POC Glucometer 101 (74 to 106) mg/dL Calcium (8.4-10.2) mg/dL Total Bilirubin (0.2-1.3) mg/dL AST (17-59) U/L ALT (0-50) U/L Alkaline Phosphatase (38-126) U/L Serum Total Protein (6.3-8.2) g/dL Albumin (3.5-5.0) g/dL Urinalys Dipstick Clnc MAIN LAB Urine Color YELLOW (YELLOW) Urine Appearance CLEAR (CLEAR) Urine pH 6.0 (5-6) Ur Specific Backus 1.025 (1.005-1.025) POC Urine Protein Conf NEGATIVE (Negative) Urine Ketones SMALL-15 A (NEGATIVE) Urine Nitrite NEGATIVE (NEGATIVE) Urine Bilirubin NEGATIVE (NEGATIVE) Urine Urobilinogen 0.2 (0-1) mg/dL Urine Leukocytes NEGATIVE (NEGATIVE) Urine WBC (Auto) 0-2 (0-5) /HPF Urine RBC (Auto) 11-15 A (0-2) /HPF U Epithel Cells (Auto) NONE (FEW) /HPF Urine Bacteria (Auto) NONE (NEGATIVE) /HPF Urine RBC SMALL A (0-5) Benjamin/ul Urine Mucus (Auto) SLIGHT A (NEGATIVE) /HPF Ur Culture Indicated? NO Urine Glucose NEGATIVE (NEGATIVE) mg/dL 05/06/22 Range/Units 05:41 WBC (4.0-10.5) x10^3/uL RBC (4.1-5.6) x10^6/uL Hgb (12.5-18.0) g/dL Hct (42-50) % MCV (78-100) fL MCH (26-32) pg MCHC (32-36) g/dL RDW (11.5-14.0) % Plt Count (150-450) x10^3/uL MPV (7.5-11.0) fL Gran % (36.0-66.0) % Immature Gran % (Auto) (0.00-0.4) % Nucleat RBC Rel Count (0.00-0.1) % Eos # (Auto) (0-0.5) x10^3/uL Immature Gran # (Auto) (0.00-0.03) x10^3u/L Absolute Lymphs (auto) (1.0-4.6) x10^3/uL Absolute Monos (auto) (0.0-1.3) x10^3/uL Absolute Nucleated RBC (0.00-0.01) x10^3u/L Lymphocytes % (24.0-44.0) % Monocytes % (0.0-12.0) % Eosinophils % (0.00-5.0) % Basophils % (0.0-0.4) % Absolute Granulocytes (1.4-6.9) x10^3/uL Basophils # (0-0.4) x10^3/uL Sodium 135 L (137-145) mmol/L Potassium 3.9 (3.5-5.1) mmol/L Chloride 104 (98-107) mmol/L Carbon Dioxide 28 (22-30) mmol/L Anion Gap 7.3 (5-15) MEQ/L BUN 9 (9-20) mg/dL Creatinine 0.90 (0.66-1.25) mg/dL Estimated GFR > 60.0 ML/MIN Glucose 101 (74-106) mg/dL POC Glucometer (74 to 106) mg/dL Calcium 8.4 (8.4-10.2) mg/dL Total Bilirubin 0.70 (0.2-1.3) mg/dL AST 20 (17-59) U/L ALT 20 (0-50) U/L Alkaline Phosphatase 72 (38-126) U/L Serum Total Protein 6.4 (6.3-8.2) g/dL Albumin 3.6 (3.5-5.0) g/dL Urinalys Dipstick Clnc Urine Color (YELLOW) Urine Appearance (CLEAR) Urine pH (5-6) Ur Specific Backus (1.005-1.025) POC Urine Protein Conf (Negative) Urine Ketones (NEGATIVE) Urine Nitrite (NEGATIVE) Urine Bilirubin (NEGATIVE) Urine Urobilinogen (0-1) mg/dL Urine Leukocytes (NEGATIVE) Urine WBC (Auto) (0-5) /HPF Urine RBC (Auto) (0-2) /HPF U Epithel Cells (Auto) (FEW) /HPF Urine Bacteria (Auto) (NEGATIVE) /HPF Urine RBC (0-5) Benjamin/ul Urine Mucus (Auto) (NEGATIVE) /HPF Ur Culture Indicated? Urine Glucose (NEGATIVE) mg/dL - Radiology Impressions Radiology Exams & Impressions: Radiology Procedures Category Date Time Status ABDOMEN AND PELVIS W CONTRAST [CT] Urgent Exams 05/06/22 10:40 Taken ABDOMEN AND PELVIS W/0 CONTRAS [CT] Stat Exams 05/05/22 14:40 Completed - Other Procedures and Tests Respiratory Therapy 05/06/22 05:03 Oxygen Nasal Cannula 2 lpm Assessment/Plan (1) Colitis Current Visit: Yes Status: Acute Assessment & Plan: 31yo male with abdominal pain most consistent with enteritis. unclear etiology. initially with diarrhea, then scant blood, then difficulty moving bowels. now passing flatus readily. exam is totally benign essentially nontender. initial leukocytosis improved. ct images all reviewed there is a distended colon with gas and stool without obstruction. there is scant free fluid. -recommend stool culture o&p but most likely some self limited enteritis. -empiric flagyl. -FLD adat. -likely weill defer further management to medicine unless patient worsens. -f/u 2-4 weeks in office. would like get elective c scope at some point. Code(s): K52.9 - NONINFECTIVE GASTROENTERITIS AND COLITIS, UNSPECIFIED
--- NOTE | 2022-05-06 21:24 | XRAY ---
Indication: Left lower quadrant pain. Right read blood in stool. Constipation. Multiple contiguous axial images obtained through the abdomen and pelvis using 80 cc of Isovue 370 contrast. Gastrografin also used. Comparison: One day earlier Lung bases demonstrates worsening moderate bibasilar dependent atelectasis. Heart not enlarged. Contrasted stomach and bowel loops nonobstructed. Normal air-filled appendix. Colon again air distended throughout with mild fecal debris in the ascending colon. Previous mid descending colon minimal wall thickening and mild pericolonic stranding improved with minimal residual. New tiny fluid along the left colic gutter with stable tiny pelvic free fluid. No free air. Stable fatty liver. Minimally distended urinary bladder demonstrates new Courtney balloon catheter in situ. Remaining liver, gallbladder, pancreas, spleen, adrenal glands, kidneys, ureters, bladder, and aorta are unremarkable. Impression: 1. Again mild diffuse air distended colon. Previous mid descending colitis improved with minimal residual. New tiny left colic and stable pelvic free fluid presumed reactive. 2. Worsening bibasilar dependent atelectasis. 3. Again fatty liver. Comment: Preliminary interpretation made by [facility]. No critical discrepancy.
[2022-05-06] MEDS: ceLEXa 20 MG PO SCH (21:33)
[2022-05-07] MEDS: Sodium Chloride 0.9% 1000 ML 1,000 ML IV SCH ×4 (01:27→23:11)
[2022-05-07 04:59] LABS: Absolute Neutrophil Ct (ANC) 4.58 x10^3/uL (1.4-6.9); Basophil (Absolute #) 0.03 x10^3/uL (0-0.4); Eosinophil % 2.8 % (0.00-5.0); Eosinophil (Absolute #) 0.21 x10^3/uL (0-0.5); Hematocrit 40.5 % (42-50); Hemoglobin 13.8 g/dL (12.5-18.0); Lymphocyte (Absolute #) 2.09 x10^3/uL (1.0-4.6); Lymphocytes % 27.7 % (24.0-44.0); Mean Cell Volume 86.5 fL (78-100); Mean Corpuscular Hemoglobin 29.5 pg (26-32); Mean Corpuscular Hgb Concent. 34.1 g/dL (32-36); Mean Platelet Volume 9.3 fL (7.5-11.0); Monocyte (Absolute #) 0.59 x10^3/uL (0.0-1.3); Monocytes % 7.8 % (0.0-12.0); Neutrophil % 60.8 % (36.0-66.0); Platelet Count 279 x10^3/uL (150-450); Red Blood Count 4.68 x10^6/uL (4.1-5.6); White Blood Count 7.5 x10^3/uL (4.0-10.5)
[2022-05-07 05:21] LABS: ALBUMIN 3.5 g/dL (3.5-5.0); ALKALINE PHOSPHATASE 71 U/L (38-126); ANION GAP 6.2 MEQ/L (5-15); BLOOD UREA NITROGEN 6 mg/dL (9-20); CHLORIDE 104 mmol/L (98-107); Calcium 8.4 mg/dL (8.4-10.2); Carbon Dioxide 29 mmol/L (22-30); EST GLOMERULAR FILTRATION RATE > 60.0 ML/MIN; Glucose 103 mg/dL (74-106); Potassium 3.8 mmol/L (3.5-5.1); SGOT/AST 16 U/L (17-59); SGPT/ALT 17 U/L (0-50); SODIUM 135 mmol/L (137-145); Total Protein 6.2 g/dL (6.3-8.2)
[2022-05-07] MEDS: FLAGYL 500 MG IVPB 500 MG/100 ML BAG IV SCH ×4 (05:33→23:31)
[2022-05-07] MEDS: Cozaar 50 MG PO SCH (08:31)
[2022-05-07] MEDS: Levofloxacin 500MG/100ML D5W 500 MG/100 ML BAG IV SCH (08:32)
[2022-05-07] MEDS: Miralax Powder 17GM PACKET PO SCH (10:02)
[2022-05-07] MEDS: ceLEXa 20 MG PO SCH (21:33)
[2022-05-08] MEDS: Sodium Chloride 0.9% 1000 ML 1,000 ML IV SCH ×2 (00:34→07:38)
[2022-05-08 05:16] LABS: Absolute Neutrophil Ct (ANC) 4.37 x10^3/uL (1.4-6.9); Basophil (Absolute #) 0.04 x10^3/uL (0-0.4); Eosinophil % 3.4 % (0.00-5.0); Eosinophil (Absolute #) 0.25 x10^3/uL (0-0.5); Hematocrit 41.9 % (42-50); Hemoglobin 13.5 g/dL (12.5-18.0); Lymphocyte (Absolute #) 2.09 x10^3/uL (1.0-4.6); Lymphocytes % 28.3 % (24.0-44.0); Mean Cell Volume 86.4 fL (78-100); Mean Corpuscular Hemoglobin 27.8 pg (26-32); Mean Corpuscular Hgb Concent. 32.2 g/dL (32-36); Mean Platelet Volume 9.1 fL (7.5-11.0); Monocytes % 8.1 % (0.0-12.0); Neutrophil % 59.2 % (36.0-66.0); Platelet Count 263 x10^3/uL (150-450); Red Blood Count 4.85 x10^6/uL (4.1-5.6); Red Cell Distribution Width 12.6 % (11.5-14.0); White Blood Count 7.4 x10^3/uL (4.0-10.5)
[2022-05-08 05:47] LABS: ANION GAP 8.1 MEQ/L (5-15); BLOOD UREA NITROGEN 6 mg/dL (9-20); CHLORIDE 105 mmol/L (98-107); Calcium 8.7 mg/dL (8.4-10.2); Carbon Dioxide 27 mmol/L (22-30); Creatinine 1 0.81 mg/dL (0.66-1.25); EST GLOMERULAR FILTRATION RATE > 60.0 ML/MIN; Glucose 97 mg/dL (74-106); Potassium 3.8 mmol/L (3.5-5.1); SODIUM 136 mmol/L (137-145)
[2022-05-08] MEDS: FLAGYL 500 MG IVPB 500 MG/100 ML BAG IV SCH ×4 (05:50→22:48)
[2022-05-08] MEDS ORDERED: NORCO 5/325 MG PO PRN (08:26)
--- NOTE | 2022-05-08 08:29 | PCM.NOTE ---
Date and Time: 05/08/22826 Subjective Assessment: patient is doing much better, pain is resolved and he is tolerating full liquids. no diarrhea, has not had a bowel movement but hasn't eaten anything for the last few days. Objective Exam General Appearance: no apparent distress Neurologic Exam: alert, oriented x 3 Respiratory Exam: normal breath sounds, lungs clear, No respiratory distress Cardiovascular Exam: regular rate/rhythm, normal heart sounds Gastrointestinal/Abdomen Exam: soft, No tenderness, No distention, No mass, No rebound Extremity Exam: normal inspection, normal range of motion OBJECTIVE DATA Vital Signs: Vital Signs - 24 hr Temp Pulse Resp BP Pulse Ox 05/08/22 07:16 97.3 F 63 16 117/73 94 L 05/08/22 04:00 97.3 F 67 18 116/74 96 05/08/22 03:00 16 96 05/07/22 23:32 97.8 F 83 16 112/59 96 05/07/22 23:00 16 93 L 05/07/22 19:41 98.7 F 101 H 20 130/65 98 05/07/22 19:00 16 95 05/07/22 16:00 97.9 F 69 20 127/68 99 05/07/22 11:53 98.0 F 76 16 133/62 98 05/07/22 11:49 97 Pain Assessment - Last Documented Pain Intensity 0 Pain Scale Used 0-10 Pain Scale Intake and Output: Intake & Output 05/05/22 05/06/22 05/07/22 05/08/22 11:59 11:59 11:59 11:59 Intake Total 1649 5040 4236 Output Total 1600 4200 2950 Balance 49 840 1286 Weight 113.8 kg Lab Results: Lab Results-Last 24 Hours 05/08/22 05/08/22 Range/Units 04:56 04:56 WBC 7.4 (4.0-10.5) x10^3/uL RBC 4.85 (4.1-5.6) x10^6/uL Hgb 13.5 (12.5-18.0) g/dL Hct 41.9 L (42-50) % MCV 86.4 (78-100) fL MCH 27.8 (26-32) pg MCHC 32.2 (32-36) g/dL RDW 12.6 (11.5-14.0) % Plt Count 263 (150-450) x10^3/uL MPV 9.1 (7.5-11.0) fL Gran % 59.2 (36.0-66.0) % Immature Gran % (Auto) 0.5 H (0.00-0.4) % Nucleat RBC Rel Count 0.0 (0.00-0.1) % Eos # (Auto) 0.25 (0-0.5) x10^3/uL Immature Gran # (Auto) 0.04 H (0.00-0.03) x10^3u/L Absolute Lymphs (auto) 2.09 (1.0-4.6) x10^3/uL Absolute Monos (auto) 0.60 (0.0-1.3) x10^3/uL Absolute Nucleated RBC 0.00 (0.00-0.01) x10^3u/L Lymphocytes % 28.3 (24.0-44.0) % Monocytes % 8.1 (0.0-12.0) % Eosinophils % 3.4 (0.00-5.0) % Basophils % 0.5 (0.0-0.4) % Absolute Granulocytes 4.37 (1.4-6.9) x10^3/uL Basophils # 0.04 (0-0.4) x10^3/uL Sodium 136 L (137-145) mmol/L Potassium 3.8 (3.5-5.1) mmol/L Chloride 105 (98-107) mmol/L Carbon Dioxide 27 (22-30) mmol/L Anion Gap 8.1 (5-15) MEQ/L BUN 6 L (9-20) mg/dL Creatinine 0.81 (0.66-1.25) mg/dL Estimated GFR > 60.0 ML/MIN Glucose 97 (74-106) mg/dL Calcium 8.7 (8.4-10.2) mg/dL Radiology Exams: Radiology Procedures Category Date Time Status ABDOMEN AND PELVIS W CONTRAST [CT] Urgent Exams 05/06/22 10:40 Completed Assessment/Plan (1) Colitis Current Visit: Yes Status: Acute Assessment & Plan: clinically improved, will d/c truong, advance diet and ambulate patient. d/c economist research assistant and fluids. hopefully home tomorrow if tolerating po and able to void. Code(s): K52.9 - NONINFECTIVE GASTROENTERITIS AND COLITIS, UNSPECIFIED (2) Leukocytosis Current Visit: Yes Status: Acute Code(s): D72.829 - ELEVATED WHITE BLOOD CELL COUNT, UNSPECIFIED (3) Urinary retention Current Visit: Yes Status: Acute Code(s): R33.9 - RETENTION OF URINE, UNSPECIFIED
[2022-05-08] MEDS: Miralax Powder 17GM PACKET PO SCH (09:14)
[2022-05-08] MEDS: Cozaar 50 MG PO SCH (09:21)
[2022-05-08] MEDS: Levofloxacin 500MG/100ML D5W 500 MG/100 ML BAG IV SCH (09:22)
[2022-05-08] MEDS: DILAUDID 1 MG/1ML PCA SYRINGE IV PRN (09:27)
[2022-05-08] MEDS: ceLEXa 20 MG PO SCH (20:26)
[2022-05-09] MEDS: FLAGYL 500 MG IVPB 500 MG/100 ML BAG IV SCH ×2 (05:15→11:35)
[2022-05-09 05:44] LABS: Basophil (Absolute #) 0.05 x10^3/uL (0-0.4); Eosinophil % 2.9 % (0.00-5.0); Eosinophil (Absolute #) 0.24 x10^3/uL (0-0.5); Hematocrit 43.2 % (42-50); Hemoglobin 13.8 g/dL (12.5-18.0); Lymphocyte (Absolute #) 2.18 x10^3/uL (1.0-4.6); Mean Cell Volume 86.4 fL (78-100); Mean Corpuscular Hemoglobin 27.6 pg (26-32); Mean Corpuscular Hgb Concent. 31.9 g/dL (32-36); Mean Platelet Volume 9.2 fL (7.5-11.0); Monocyte (Absolute #) 0.65 x10^3/uL (0.0-1.3); Monocytes % 7.7 % (0.0-12.0); Neutrophil % 61.8 % (36.0-66.0); Platelet Count 297 x10^3/uL (150-450); Red Cell Distribution Width 12.6 % (11.5-14.0); White Blood Count 8.4 x10^3/uL (4.0-10.5)
[2022-05-09 06:21] LABS: ALBUMIN 3.7 g/dL (3.5-5.0); ALKALINE PHOSPHATASE 78 U/L (38-126); ANION GAP 7.8 MEQ/L (5-15); BLOOD UREA NITROGEN 9 mg/dL (9-20); CHLORIDE 105 mmol/L (98-107); Calcium 8.8 mg/dL (8.4-10.2); Carbon Dioxide 28 mmol/L (22-30); Creatinine 1 0.88 mg/dL (0.66-1.25); EST GLOMERULAR FILTRATION RATE > 60.0 ML/MIN; Glucose 105 mg/dL (74-106); Potassium 4.2 mmol/L (3.5-5.1); SGOT/AST 26 U/L (17-59); SGPT/ALT 23 U/L (0-50); SODIUM 138 mmol/L (137-145); Total Protein 6.5 g/dL (6.3-8.2)
[2022-05-09] MEDS: Levofloxacin 500MG/100ML D5W 500 MG/100 ML BAG IV SCH (10:20)
[2022-05-09] MEDS: Miralax Powder 17GM PACKET PO SCH (10:21)
[2022-05-09] MEDS: Cozaar 50 MG PO SCH (10:29)
[2022-05-09] MEDS ORDERED: CITROMA 296 ML PO ONE (11:06)
--- NOTE | 2022-05-09 11:09 | PCM.DS ---
Discharge Summary Date of Admission: 05/06/22 09:39 Admitting Physician: PERLA SPARKS Consults: Consults on Case 05/05/22 16:48 Consult Surgery ROUTINE Primary Care Provider: MARY JANE HONG Allergies Allergies No Known Drug Allergies Allergy (Verified 05/05/22 13:57) Hospital Summary - Hospital Course Hospital Course: patient arrived with abd pain, ct c/w colitis and concern for enlarged appendix. surgery consulted, repeat ct revealed normal appendix. he was treated for colitis and pain is gone, he is tolerating regular diet, labs are within normal limits. diarrhea has resolved as well. had some urinarty retention, truong is out and he is voiding on his own at time of discharge. - Vitals & Intake/Output Vital Signs: Vital Signs Temperature 98.6 F 05/09/22 06:54 Pulse Rate 75 05/09/22 06:54 Respiratory Rate 18 05/09/22 06:54 Blood Pressure 130/75 05/09/22 06:54 O2 Sat by Pulse Oximetry 94 L 05/09/22 06:54 Intake & Output: Intake & Output 05/06/22 05/07/22 05/08/22 05/09/22 11:59 11:59 11:59 11:59 Intake Total 1649 5040 4716 1320 Output Total 1600 4200 4150 Balance 49 310 041 3098 Weight 113.8 kg - Lab Result Diagrams: 05/09/22 04:40 05/09/22 04:40 Lab Results-Last 24 Hrs: Lab Results-Last 24 Hours 05/09/22 05/09/22 Range/Units 04:40 04:40 WBC 8.4 (4.0-10.5) x10^3/uL RBC 5.00 (4.1-5.6) x10^6/uL Hgb 13.8 (12.5-18.0) g/dL Hct 43.2 (42-50) % MCV 86.4 (78-100) fL MCH 27.6 (26-32) pg MCHC 31.9 L (32-36) g/dL RDW 12.6 (11.5-14.0) % Plt Count 297 (150-450) x10^3/uL MPV 9.2 (7.5-11.0) fL Gran % 61.8 (36.0-66.0) % Immature Gran % (Auto) 1.0 H (0.00-0.4) % Nucleat RBC Rel Count 0.0 (0.00-0.1) % Eos # (Auto) 0.24 (0-0.5) x10^3/uL Immature Gran # (Auto) 0.08 H (0.00-0.03) x10^3u/L Absolute Lymphs (auto) 2.18 (1.0-4.6) x10^3/uL Absolute Monos (auto) 0.65 (0.0-1.3) x10^3/uL Absolute Nucleated RBC 0.00 (0.00-0.01) x10^3u/L Lymphocytes % 26.0 (24.0-44.0) % Monocytes % 7.7 (0.0-12.0) % Eosinophils % 2.9 (0.00-5.0) % Basophils % 0.6 (0.0-0.4) % Absolute Granulocytes 5.20 (1.4-6.9) x10^3/uL Basophils # 0.05 (0-0.4) x10^3/uL Sodium 138 (137-145) mmol/L Potassium 4.2 (3.5-5.1) mmol/L Chloride 105 (98-107) mmol/L Carbon Dioxide 28 (22-30) mmol/L Anion Gap 7.8 (5-15) MEQ/L BUN 9 (9-20) mg/dL Creatinine 0.88 (0.66-1.25) mg/dL Estimated GFR > 60.0 ML/MIN Glucose 105 (74-106) mg/dL Calcium 8.8 (8.4-10.2) mg/dL Total Bilirubin 0.40 (0.2-1.3) mg/dL AST 26 (17-59) U/L ALT 23 (0-50) U/L Alkaline Phosphatase 78 (38-126) U/L Serum Total Protein 6.5 (6.3-8.2) g/dL Albumin 3.7 (3.5-5.0) g/dL Micro Results-Entire Visit: Microbiology 05/06/22 11:00 Urine Culture - Final Urine, Indwelling Catheter NO GROWTH 05/06/22 Unknown Stool Culture Result 1 - Final Stool Not Reportable Stool Culture Result 2 - Final Not Reportable Stool Culture Result 3 - Final Not Reportable Stool Culture Result 4 - Final Not Reportable Stool Culture Organism Suscept - Final Not Reportable Campylobacter Result 1 - Final Not Reportable Campylobacter Result 2 - Final Not Reportable Campylobactor Result 3 - Final Not Reportable Campylobacter Result 4 - Final Not Reportable Campylobactor Susceptibility - Final Not Reportable - Procedures and Test Procedures and Tests throughout Hospitalization: Therapy Orders & Screens 05/06/22 05:03 Oxygen Nasal Cannula 2 lpm Comment: Diagnosis: colitis; prominent appendix Discharge Exam General Appearance: no apparent distress Neurologic Exam: alert, oriented x 3 Respiratory Exam: normal breath sounds Cardiovascular Exam: regular rate/rhythm, normal heart sounds Gastrointestinal/Abdomen Exam: soft, No tenderness, No mass Extremity Exam: normal inspection, normal range of motion Skin Exam: normal color, warm, dry Final Diagnosis/Problem List - Final Discharge Diagnosis/Problem (1) Colitis Current Visit: Yes Status: Acute Assessment & Plan: home on levaquin/flagyl x 5 more days Code(s): K52.9 - NONINFECTIVE GASTROENTERITIS AND COLITIS, UNSPECIFIED (2) Leukocytosis Current Visit: Yes Status: Acute Assessment & Plan: resolved with treatment, doing great now Code(s): D72.829 - ELEVATED WHITE BLOOD CELL COUNT, UNSPECIFIED (3) Urinary retention Current Visit: Yes Status: Acute Assessment & Plan: resolved Code(s): R33.9 - RETENTION OF URINE, UNSPECIFIED - Discharge Disposition: Home, Self-Care Condition: Stable Prescriptions: New Metronidazole 500 mg [Flagyl 500 MG] 500 mg PO TID #15 tablet Levofloxacin [Levofloxacin 500 MG Tablet] 500 mg PO DAILY #5 tablet Continue Phentermine HCl 37.5 mg PO DAILY Losartan Potassium [Cozaar] 100 mg PO DAILY Citalopram Hydrobromide [Celexa] 10 mg PO HS Follow up with: MARY JANE HONG NP [Primary Care Provider] -
[2022-05-09 11:58] VITALS: BP 122/71; PULSE 81; O2SAT 96
[2022-05-09] MEDS ORDERED: COLACE Liquid 50 MG/5 ML PO ONE (12:15)
== END 2022-05-09 13:00 | disposition home or self-care (01) | DRG 392 ==
LOC: ED 13:48 → MED SURG 16:47 → OBSVTOIN 05-06 09:39 → ED 05-06 13:48 → MED SURG 05-06 16:47
PROVIDERS: ADMIT Family Medicine; ATTEND Family Medicine
DX: K52.9 Noninfective gastroenteritis and colitis, unspecified (principal); D72.829 Elevated white blood cell count, unspecified; R33.9 Retention of urine, unspecified; I10 Essential (primary) hypertension; G47.30 Sleep apnea, unspecified; Z79.899 Other long term (current) drug therapy; Z20.828 Contact with and (suspected) exposure to other viral communicable diseases
CPT/HCPCS: 0241U; 36000; 36415; 74176; 74177; 80048; 80053; 81015; 82150; 82947; 83690; 85025; 87086; 93268; 94762; 96360; 96365; 96367; 96374; 96375; 99285; J1170; J1956; J2405; A9270-GY; G0378